=== PATIENT | female | born 1945 | race Caucasian/White ===

== ENCOUNTER 2021-03-28 09:36 | Outpatient (CLI) | payer MEDICARE, BC | END 2021-03-28 09:37 | disposition home or self-care (01) | LOC: CSHULT 09:36 | PROVIDERS: ATTEND Otolaryngology Plastic Surgery within the Head & Neck | DX: E04.1 Nontoxic single thyroid nodule (principal) | CPT/HCPCS: 76536 ==

== ENCOUNTER 2022-04-13 12:49 | Outpatient (CLI) | payer MEDICARE, BC | END 2022-04-13 12:50 | disposition home or self-care (01) | LOC: CSHULT 12:49 | PROVIDERS: ATTEND Otolaryngology Plastic Surgery within the Head & Neck | DX: E04.9 Nontoxic goiter, unspecified (principal) | CPT/HCPCS: 76536 ==

== ENCOUNTER 2023-05-01 10:48 | Outpatient (CLI) | payer MEDICARE, BC | END 2023-05-01 10:49 | disposition home or self-care (01) | LOC: CSHULT 10:48 | PROVIDERS: ATTEND Otolaryngology Plastic Surgery within the Head & Neck | DX: D49.7 Neoplasm of unspecified behavior of endocrine glands and other parts of nervous system (principal); E04.1 Nontoxic single thyroid nodule | CPT/HCPCS: 76536 ==